=== PATIENT | female | born 1965 | race Two or more races ===

== ENCOUNTER 2020-09-03 12:30 | Emergency (ER) | payer OTHER ==
[2020-09-03 12:50] VITALS: TEMP 98; BMI 29.5
[2020-09-03] MEDS ORDERED: MECLIZINE HCL 25 MG TABLET (FP) ONE (13:05)
[2020-09-03] MEDS ORDERED: MECLIZINE HCL 25 MG TABLET (FP) PO ONE (13:09)
[2020-09-03 14:58] VITALS: BP 148/84; PULSE 80
== END 2020-09-03 15:15 | disposition home or self-care (01) ==
LOC: FER 12:30
DX: H81.10 Benign paroxysmal vertigo, unspecified ear (principal)
CPT/HCPCS: 99283-25